=== PATIENT | female | born 1995 | race Caucasian/White ===

== ENCOUNTER 2018-12-15 22:25 | Emergency (ER) | payer BC ==
[~2018-12-15] VITALS: Ht 180.3 cm; Wt 100.0 kg
[2018-12-15 22:29] VITALS: BP 145/84; TEMP 97.5
[2018-12-15] MEDS ORDERED: ZYRTEC 10MG10 MG PO (22:54)
[2018-12-15 23:29] VITALS: PULSE 85
== END 2018-12-15 23:29 | disposition home or self-care (01) ==
LOC: COL.ER 22:25
DX: S00.33XA Contusion of nose, initial encounter (principal); W21.9XXA Striking against or struck by unspecified sports equipment, initial encounter